=== PATIENT | female | born 2000 | race Caucasian/White ===

== ENCOUNTER 2020-06-15 20:59 | Emergency (ER) | payer OTHER ==
[~2020-06-15] VITALS: Ht 160 cm; Wt 53.1 kg
--- NOTE | 2020-06-15 21:05 | NUR ---
allrgic rxn to uknown; gen body rash redness all over face/body since 7pm; pt to bed 3, aaox4, -sob/cp. vss , nad noted. pending er provider brando
[2020-06-15] MEDS ORDERED: diphenhydrAMINE HCL 50 MG/ML VIAL ONE (21:19)
[2020-06-15] MEDS ORDERED: methylPREDNISolone SOD SUCC 125 MG/2ML VIAL ONE (21:19)
[2020-06-15] MEDS ORDERED: FAMOTIDINE/PF INJ 20 MG/2 ML VIAL IV ONE ×2 (21:21→21:30)
[2020-06-15] MEDS ORDERED: IV NS 0.9% 1,000 ML BAG IV ONE (21:30)
[2020-06-15] MEDS ORDERED: diphenhydrAMINE HCL 50 MG/ML VIAL IV ONE (21:30)
[2020-06-15] MEDS ORDERED: methylPREDNISolone SOD SUCC 125 MG/2ML VIAL IV ONE (21:30)
--- NOTE | 2020-06-15 22:28 | NUR ---
Patient discharged to home in stable condition. Written and verbal after care instructions given. Patient verbalizes understanding of instruction. IV removed. Catheter intact and site benign. Pressure and 4x4 applied to site. No bleeding noted.
[2020-06-15 23:25] VITALS: BP 139/70
== END 2020-06-15 22:28 | disposition home or self-care (01) ==
LOC: ER 20:59
DX: T78.49XA Other allergy, initial encounter (principal); L50.9 Urticaria, unspecified; E03.9 Hypothyroidism, unspecified; X58.XXXA Exposure to other specified factors, initial encounter
CPT/HCPCS: 96361; 96374; 96375; 99284; J1200; J2930; J3490; J7030

== ENCOUNTER 2021-01-18 02:03 | Emergency (ER) | payer OTHER ==
[~2021-01-18] VITALS: Ht 160 cm; Wt 52.2 kg
--- NOTE | 2021-01-18 02:17 | NUR ---
PT CAME TO THE ER C/O LOWER ABD PAIN +NAUSEA X 1 DAY. PT DENIES URINARY SYMPTOMS. PT STATES " I FEEL LIKE MY IUD IS NOT IN PLACE." PT AAOX4, VSS, RESPIRATIONS EVEN AND UNLABORED ON RA W/ AND NOTED. PT CONNECTED TO THE MONITOR AND POX
[2021-01-18] MEDS ORDERED: ONDANSETRON 4 MG TAB.RAPDIS ONE (02:21)
--- NOTE | 2021-01-18 02:21 | NUR ---
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
[2021-01-18] MEDS ORDERED: ONDANSETRON 4 MG TAB.RAPDIS SL ONE (02:30)
[2021-01-18 02:31] LABS: BASOPHILS % (AUTO) 0.5 % (0.0-2.0); HEMATOCRIT 39 % (33-45); HEMOGLOBIN 13.1 g/dL (11.5-14.8); LYMPHOCYTES # (AUTO) 1.9 /CMM (0.8-4.8); LYMPHOCYTES % (AUTO) 24.8 % (20.0-44.0); MEAN CORPUSCULAR HGB CONC 34 g/dl (31.0-36.0); MEAN CORPUSCULAR VOLUME 92 fL (82-100); MONOCYTES # (AUTO) 0.7 /CMM (0.1-1.30); MONOCYTES % (AUTO) 9.4 % (2.0-12.0); NEUTROPHILS % (AUTO) 64.3 % (43.0-81.0); PLATELET COUNT (AUTO) 158 /CMM (150-450); RED BLOOD CELL COUNT(AUTO) 4.23 MIL/uL (4.0-5.2); WHITE BLOOD COUNT (AUTO) 7.8 K/uL (4.3-11.0)
[2021-01-18 02:34] LABS: CALCIUM, SERUM 9.1 mg/dL (8.5-10.1); CREATININE 0.9 mg/dL (0.6-1.3); POTASSIUM 3.4 mmol/L (3.5-5.1)
[2021-01-18 02:39] LABS: ALBUMIN 3.9 g/dL (3.4-5.0); BILIRUBIN,DIRECT 0.1 mg/dL (0.0-0.2); BILIRUBIN,TOTAL 0.2 mg/dL (0.2-1.0); TOTAL PROTEIN, SERUM 7.2 g/dL (6.4-8.2)
[2021-01-18 02:59] LABS: BILIRUBIN,URINE NEGATIVE (NEGATIVE); COLOR,URINE YELLOW (YELLOW); LEUKOCYTE ESTERASE ,URINE NEGATIVE (NEGATIVE); NITRITE, URINE NEGATIVE (NEGATIVE); PROTEIN,URINE NEGATIVE (NEGATIVE); UGLUCOSE NEGATIVE (NEGATIVE); UROBILINOGEN,URINE 0.2 EU/dL (0.2)
[2021-01-18 03:05] LABS: RBC,URINE 0-2 /HPF (0-2)
[2021-01-18 03:06] LABS: BACTERIA,URINE Rare /HPF (None Seen); SQUAMOUS EPITHELIAL CELL,UR Rare /HPF (None Seen); URINE AMORPHOUS PHOSPHATES Many /HPF (None Seen); WBC,URINE 0-2 /HPF (0-3)
--- NOTE | 2021-01-18 03:16 | NUR ---
pt to radiology via wheel chair.
--- NOTE | 2021-01-18 03:45 | NUR ---
pt returned from radiology
--- NOTE | 2021-01-18 04:11 | NUR ---
called [facility] spoke to chris, cxr and ct abd pelvis to be read next.
--- NOTE | 2021-01-18 04:48 | NUR ---
Patient discharged to home in stable condition. Written and verbal after care instructions given. Patient verbalizes understanding of instruction.pt ambulatory with a steady gait
[2021-01-18 04:49] VITALS: BP 120/32
== END 2021-01-18 04:49 | disposition home or self-care (01) ==
LOC: ER 02:09
DX: R10.30 Lower abdominal pain, unspecified (principal); R11.0 Nausea; E03.9 Hypothyroidism, unspecified; R94.31 Abnormal electrocardiogram [ECG] [EKG]
CPT/HCPCS: 36415; 71045; 74176; 80053; 80076; 81001; 84703; 85025; 93005; 99285; Q0162

== ENCOUNTER 2021-01-20 18:22 | Emergency (ER) | payer OTHER ==
[~2021-01-20] VITALS: Ht 160 cm; Wt 52.2 kg
--- NOTE | 2021-01-20 18:35 | NUR ---
PATIENT BIBS FOR C/O FEELING FAINT AND DIZZY X 4 HOURS, DX OVARIAN CYST LAST SATURDAY. DENIES PAIN. IN ROOM AIR AND DENIES SOB. WILL CONTINUE TO MONITOR THE PATIENT.
--- NOTE | 2021-01-20 18:52 | NUR ---
URINE SENT TO THE LAB
--- NOTE | 2021-01-20 19:00 | NUR ---
BLOOD SPECIMEN COLLECTED AND SENT TO THE LAB
[2021-01-20 19:10] LABS: BASOPHILS % (AUTO) 0.4 % (0.0-2.0); EOSINOPHILS % (AUTO) 1.2 % (0.0-6.0); HEMATOCRIT 40 % (33-45); HEMOGLOBIN 13.3 g/dL (11.5-14.8); LYMPHOCYTES % (AUTO) 12.1 % (20.0-44.0); MEAN CORPUSCULAR HGB CONC 33 g/dl (31.0-36.0); MEAN CORPUSCULAR VOLUME 94 fL (82-100); MONOCYTES % (AUTO) 12.6 % (2.0-12.0); NEUTROPHILS # (AUTO) 6.2 /CMM (1.8-8.9); NEUTROPHILS % (AUTO) 73.7 % (43.0-81.0); PLATELET COUNT (AUTO) 159 /CMM (150-450); RED BLOOD CELL COUNT(AUTO) 4.24 MIL/uL (4.0-5.2); WHITE BLOOD COUNT (AUTO) 8.4 K/uL (4.3-11.0)
[2021-01-20] MEDS ORDERED: IOHEXOL-350 100 ML VIAL IV ONE (20:02)
[2021-01-20] MEDS ORDERED: CT SWABBABLE VALVE TRANS SET 1 EA INFUS.SET MC ONE (20:02)
[2021-01-20] MEDS ORDERED: IV NS 0.9% 250 ML IV ONE (20:02)
[2021-01-20 20:24] LABS: POTASSIUM 3.7 mmol/L (3.5-5.1)
[2021-01-20 20:25] LABS: CALCIUM, SERUM 9.3 mg/dL (8.5-10.1); CREATININE 0.8 mg/dL (0.6-1.3)
--- NOTE | 2021-01-20 21:11 | NUR ---
Patient discharged to home in stable condition. Written and verbal after care instructions given. Patient verbalizes understanding of instruction.IV removed. Catheter intact and site benign. Pressure and 4x4 applied to site. No bleeding noted.Pt ambulatory with a steady gait
[2021-01-20 21:12] VITALS: BP 134/79
== END 2021-01-20 21:12 | disposition home or self-care (01) ==
LOC: ER 18:26
DX: R07.89 Other chest pain (principal); R42 Dizziness and giddiness; R10.30 Lower abdominal pain, unspecified; E03.9 Hypothyroidism, unspecified
CPT/HCPCS: 36415; 71275; 80048; 84703; 85025; 85378; 93005; 99285; J7050; Q9967